=== PATIENT | male | born 1990 | race Two or more races ===

== ENCOUNTER 2019-06-06 20:31 | Emergency (ER) | payer SELFPAY ==
[~2019-06-06] VITALS: Ht 185.4 cm; Wt 130.2 kg
[2019-06-06] MEDS ORDERED: ORPHENADRINE CITRATE 60 MG/2 ML VIAL. IM ONE (22:00)
[2019-06-06 22:36] VITALS: BP 138/78
[2019-06-06] MEDS ORDERED: CYCL10TA2 PO (22:46)
[2019-06-06] MEDS ORDERED: NAPR-514 PO (22:46)
--- NOTE | 2019-06-06 22:47 | PHYS DOC ---
Past Medical History Past Medical History: Bipolar, Depression, Other Additional Past Medical Histor: CHRONIC BACK PAIN Past Surgical History: No Surgical History Alcohol Use: Rarely Drug Use: Methamphetamine Adult General Chief Complaint Chief Complaint: MECHANICAL FALL HPI HPI Patient is a 29 year old male, accompanied by his , who presents to the emergency department with complaints of right low back pain after slipping on water and falling onto his right knee. Patient reports a history of chronic back pain. He states that he had to smoke some methamphetamine to be able to come to the emergency department because the pain was so bad. The patient states that his pain is a 10 out of 10 on the pain scale. He denies any loss of bowel or bladder control, he denies any saddle anesthesia. There are no alleviating factors or exacerbating factors. The pain does not increase when he lifts his legs. He currently denies any numbness, tingling, or weakness of any of his extremities, on arrival he had reported tingling in his hands and feet to the nurse. He also denies any head injury, loss of consciousness, neck pain, or nausea/vomiting. All other ROS is neg unless otherwise noted in HPI. Review of Systems Review of Systems See Above Current Medications Current Medications Current Medications Medications (Trade) Dose Ordered Sig/Leanna Start Time Stop Time Status Last Admin Dose Admin Lorazepam (Ativan Inj) 2 mg 1X ONCE 06/06/19 22:00 06/06/19 22:01 DC 06/06/19 21:35 2 MG Orphenadrine Citrate (Norflex) 60 mg 1X ONCE 06/06/19 22:00 06/06/19 22:01 DC 06/06/19 21:35 60 MG Allergies Allergies Allergies Coded Allergies Type Severity Reaction Last Updated Verified No Known Drug Allergies 06/06/19 No Physical Exam Physical Exam See Above Constitutional: Well developed, well nourished, no acute distress, non-toxic appearance, obese. [] HENT: Normocephalic, atraumatic, bilateral external ears normal, nose normal. [] Eyes: PERRLA, EOMI, conjunctiva normal, no discharge. [] Neck: Normal range of motion, no stridor. [] Lungs & Thorax: Respirations even and unlabored, no retractions, no respiratory distress Skin: Warm, dry, no erythema, no rash. [] Back: No bony tenderness, no CVA tenderness; R lumbar paraspinal TTP, no increased pain with straight leg life on right or left. [] Extremities: No tenderness, no cyanosis, no clubbing, ROM intact, no edema. [] Neurologic: Alert and oriented X 3, normal motor function, normal sensory function, no focal deficits noted. [] Psychologic: Affect normal, judgement normal, mood normal. [] Current Patient Data Vital Signs Vital Signs Date Time Temp Pulse Resp B/P (MAP) Pulse Ox O2 Delivery O2 Flow Rate FiO2 06/06/19 22:36 87 14 95 06/06/19 20:41 97.8 164/92 (116) Room Air 97.8 EKG EKG [] Radiology/Procedures Radiology/Procedures [] Course & Med Decision Making Course & Med Decision Making Pertinent Labs and Imaging studies reviewed. (See chart for details) dx: fall, low back pain Pt was given 2 mg of IM ativan and 60 mg of IM norflex. Pain was tolerable after these medications. Prescriptions written for flexeril and naproxen. Recommend application of ice or heat as needed for comfort. Follow up with PCP if symptoms persist, return to ER if sx worsen. Patient verbalized an understanding of home care, medications, follow-up, and return to ED instructions and was in agreement with the plan of care. [] Dragon Disclaimer Dragon Disclaimer This electronic medical record was generated, in whole or in part, using a voice recognition dictation system. Departure Departure Impression: Primary Impression: Pain in right paraspinal region Additional Impressions: Low back pain Fall from standing Disposition: 01 HOME, SELF-CARE Condition: STABLE Referrals: NO PCP (PCP) Patient Instructions: Back Pain, Adult, [id number] Additional Instructions: Fill the prescription and take as directed. Apply ice or heat to sore areas as needed for comfort. Activity as tolerated. Follow up with your doctor if symptoms persist, return to the ER if symptoms worsen. Scripts Naproxen (NAPROXEN) 500 Mg Tablet 1 TAB PO BID for 10 Days, #20 TAB 0 Refills Prov: ALEXANDREA PULLIAM APRN 06/06/19 Cyclobenzaprine Hcl (CYCLOBENZAPRINE HCL) 10 Mg Tablet 1 TAB PO TID PRN for PAIN for 7 Days, #21 TAB 0 Refills Prov: ALEXANDREA PULLIAM DANCE ENTERTAINER 06/06/19 Problem Qualifiers Additional Impressions: Low back pain Chronicity: acute Back pain laterality: right Sciatica presence: without sciatica Qualified Codes: M54.5 - Low back pain Fall from standing Encounter type: initial encounter Qualified Codes: W19.XXXA - Unspecified fall, initial encounter ALEXANDREA PULLIAM DANCE ENTERTAINER Jun 06, 2019 22:46
== END 2019-06-06 23:03 | disposition home or self-care (01) ==
LOC: ER 20:31
DX: M54.5 Low back pain (principal); G89.29 Other chronic pain; F31.9 Bipolar disorder, unspecified; G89.11 Acute pain due to trauma; W01.0XXA Fall on same level from slipping, tripping and stumbling without subsequent striking against object, initial encounter; Y93.89 Activity, other specified; Y92.89 Other specified places as the place of occurrence of the external cause; Y99.8 Other external cause status
CPT/HCPCS: 96372; 99284; J2060; J2360